=== PATIENT | female | born 1965 | race Caucasian/White ===

== ENCOUNTER 2019-02-02 08:03 | Emergency (ER) | payer OTHER ==
[~2019-02-02] VITALS: Ht 167.6 cm; Wt 68.0 kg
[~2019-02-02 08:03] MED LIST: IBUPROFEN 600600 M1 PO; NOHOMEMEDICATIONS
[2019-02-02] MEDS ORDERED: MUCINEX600 MG PO (08:12)
[2019-02-02 08:48] LABS: ABSOLUTE BASOPHILS 0.1 thou/uL (0.0-0.2); ABSOLUTE EOSINOPHILS 0.1 thou/uL (0.0-0.7); ABSOLUTE LYMPHOCYTES 2.3 thou/uL (0.8-5.3); ABSOLUTE MONOCYTES 0.5 thou/uL (0.0-1.2); ABSOLUTE NEUTROPHILS 3.3 thou/uL (1.6-8.1); BASOPHILS 1.4 %; EOSINOPHILS 2.2 %; HEMATOCRIT 44.1 % (37.0-47.0); HEMOGLOBIN 14.9 gm/dL (12.0-15.0); LYMPHOCYTES 36.4 %; MCH 31.1 pg (26.0-34.0); MCHC 33.8 g/dL (28.0-37.0); MCV 92.2 fL (80.0-100.0); MONOCYTES 7.4 %; MPV 7.3 fl. (7.2-11.1); NUCLEATED RBCS 0 /100WBC; PLATELET COUNT* 234 thou/uL (150-400); POLYS 52.6 %; RBC 4.79 mil/uL (4.20-5.00); RDW-CV 13.2 % (10.5-14.5); WBC 6.3 thou/uL (4.0-11.0)
[2019-02-02 08:57] LABS: ANION GAP 6 mmol/L (7-16); BUN 7 mg/dL (7-18); CALCIUM 9.1 mg/dL (8.5-10.1); CHLORIDE 104 mmol/L (98-107); CO2 31 mmol/L (21-32); CREATININE 0.8 mg/dL (0.6-1.3); GLUCOSE 75 mg/dL (70-99); POTASSIUM 4.2 mmol/L (3.5-5.1); SODIUM 141 mmol/L (136-145)
[2019-02-02 09:08] LABS: ALBUMIN 3.9 g/dL (3.4-5.0); ALKALINE PHOSPHATASE 97 U/L (46-116); LIPASE 79 U/L (73-393); MAGNESIUM 2.3 mg/dL (1.8-2.4); NT-PRO BRAIN NAT PEPTIDE 68 pg/mL (<300); SGPT 23 U/L (30-65); TOTAL BILIRUBIN 0.4 mg/dL (<0.1-1.0); TOTAL PROTEIN 7.3 g/dL (6.4-8.2); TROPONIN-I LEVEL <0.06 ng/mL (<0.06)
[2019-02-02 09:16] LABS: SGOT 13 U/L (15-37)
[2019-02-02] MEDS ORDERED: NORCO 5-325 TA1 EAC1 PO (11:24)
[2019-02-02] MEDS ORDERED: VENTOLIN HFA 1818 GM INH (11:24)
[2019-02-02] MEDS ORDERED: ZPAK PO (11:24)
[2019-02-02 12:13] VITALS: BP 108/60
--- NOTE | 2019-02-02 20:10 | EKG ---
[place] [address] ELECTROCARDIOGRAM REPORT Name: KATHYA RODRIGUES Room: [facility]#: [id number] Admission: 02/02/19 Attend Phys: Discharge: 02/02/19 Date of : 63 Report #: [id number] THIS REPORT FOR: //name// [facility] ED Test Date: 2019-02-02 Test Time: 08:08:43 Pat Name: KATHYA RODRIGUES Department: Room: Gender: F Assurance Auditor: SABRA : 1965 Requested By: Higinio Overton Order Number: [id number] MD: Jose Upton Measurements Intervals [place] Rate: 63 P: 61 [place]: 199 QRS: 5 QRSD: 95 T: 43 QT: 394 QTc: 404 Interpretive Statements Sinus rhythm Probable left atrial enlargement RSR' in V1 or V2, right VCD or RVH No previous ECG available for comparison cannot exclude old anterior IL Electronically Signed On 02-02-2019 20:10:21 CDT by Jose Upton [email or web address] <ELECTRONICALLY SIGNED> By: Chepe Upton MD, [facility] 02/02/192009 7 7 Chepe Upton MD, [facility] /EPI
== END 2019-02-02 12:13 | disposition home or self-care (01) ==
LOC: M.ERS 08:03
PROVIDERS: Emergency Medicine Emergency Medical Services
DX: J18.9 Pneumonia, unspecified organism (principal); F17.200 Nicotine dependence, unspecified, uncomplicated; Z90.89 Acquired absence of other organs; Z87.442 Personal history of urinary calculi